=== PATIENT | male | born 1980 | race Caucasian/White ===

== ENCOUNTER 2024-01-11 07:32 | Emergency (ER) | payer OTHER ==
[~2024-01-11] VITALS: Ht 172.7 cm; Wt 143.6 kg
[2024-01-11] MEDS ORDERED: ROSU10TA6 PO (07:49)
[2024-01-11] MEDS ORDERED: ASPI81CH33 PO (07:49)
[2024-01-11] MEDS ORDERED: LOPI600T PO (07:49)
[2024-01-11] MEDS ORDERED: VALS1TAB66 PO (07:49)
[2024-01-11] MEDS ORDERED: METO100T5 PO (07:49)
[2024-01-11] MEDS ORDERED: MELO15TA28 PO (07:49)
[2024-01-11] MEDS ORDERED: PANT40TA29 PO (07:49)
[2024-01-11] MEDS ORDERED: NORT10CA2 PO (07:49)
[2024-01-11] MEDS ORDERED: CARB20TA PO (07:49)
[2024-01-11] MEDS ORDERED: FURO40TA2 PO (07:49)
[2024-01-11] MEDS ORDERED: CYCL5TAB PO (07:49)
[2024-01-11 09:09] LABS: BASO % 0.5 % (0.0-1.0); EOS # 0.2 10^3/uL (0.0-0.5); EOS % 3.2 % (0.0-3.0); HEMATOCRIT 44.1 % (42.0-52.0); HEMOGLOBIN 15.1 g/dl (13.5-17.5); LYMPH # 1.3 10^3/uL (1.5-5.0); LYMPH % 23.6 % (24.0-44.0); MEAN CORPUSCULAR HEMOGLOBIN 30.8 pg (27.0-33.0); MEAN CORPUSCULAR HGB CONC 34.2 g/dl (32.0-36.5); MONO # 0.4 10^3/uL (0.0-0.8); MONO % 7.7 % (2.0-8.0); NEUTROPHILS # 3.6 10^3/uL (1.5-8.5); NEUTROPHILS % 64.5 % (36.0-66.0); PLATELET COUNT, AUTOMATED 288 10^3/uL (150-450); WHITE BLOOD COUNT 5.6 10^3/uL (4.0-10.0)
[2024-01-11] MEDS ORDERED: ISOVUE-370 76% 100ML VIAL As Ordered ONE (09:14)
[2024-01-11] MEDS: NS 1,000 ML IV ONE (09:15)
[2024-01-11 09:24] LABS: LIPASE 34 U/L (12-53)
[2024-01-11 09:26] LABS: ALBUMIN 4.5 G/DL (3.2-5.2); ALKALINE PHOSPHATASE 99 U/L (46-116); ALT/SGPT 72 U/L (7.0-40); AST/SGOT 24 U/L (<34); BILIRUBIN,DIRECT < 0.1 MG/DL (<0.4); BILIRUBIN,TOTAL 0.3 MG/DL (0.3-1.2); TOTAL PROTEIN 7.5 G/DL (5.7-8.2)
[2024-01-11] MEDS ORDERED: HOME MED LIST COMPLETE! XX SCH (09:55)
[2024-01-11] MEDS ORDERED: SIME180C25 PO (11:12)
[2024-01-11] MEDS ORDERED: DICY-61 PO (11:12)
[2024-01-11 11:30] VITALS: BP 154/79; TEMP 97.8; O2SAT 98
== END 2024-01-11 11:35 | disposition home or self-care (01) ==
LOC: M ED 07:32
DX: R10.9 Unspecified abdominal pain (principal); I10 Essential (primary) hypertension; G47.33 Obstructive sleep apnea (adult) (pediatric); Z88.5 Allergy status to narcotic agent; Z88.8 Allergy status to other drugs, medicaments and biological substances; Z79.82 Long term (current) use of aspirin; Z79.899 Other long term (current) drug therapy
CPT/HCPCS: 74177; 80047; 80076; 83690; 85025; 96360; 96361; 99284; Q9967